=== PATIENT | female | born 2000 | race Caucasian/White ===

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

== ENCOUNTER 2018-11-08 18:04 | Emergency (ER) | payer MEDICAID ==
[2018-11-08 18:09] VITALS: BMI 21.2
[2018-11-08] MEDS ORDERED: ALDACTONE25 MG PO (18:11)
[2018-11-08] MEDS ORDERED: CEFUROXIME250 MG PO (18:12)
[2018-11-08 19:00] LABS: APPEARANCE CLEAR (CLEAR); BILIRUBIN NEGATIVE (NEGATIVE); COLOR YELLOW (YELLOW); GLUCOSE NEGATIVE (NEGATIVE); KETONE LARGE mg/dL (NEGATIVE); NITRITE NEGATIVE (NEGATIVE); PROTEIN NEGATIVE (NEGATIVE); SPECIFIC GRAVITY 1.015 (1.005-1.020); UROBILINOGEN NORMAL (NORMAL)
[2018-11-08 19:25] LABS: BASOPHILS 0.3 % (0-2); EOSINOPHILS 0.5 % (0-7); HEMATOCRIT 38.6 % (36.0-48.0); IMMATURE GRANULOCYTES 0.2 % (0-5); LYMPHOCYTES 22.7 % (15-50); MCH 29.5 pg (26.0-34.0); MCHC 33.7 g/dL (31.0-37.0); MCV 87.7 fL (80.0-100.0); MEAN PLATELET VOLUME 9.7 fL (7.4-10.4); MONOCYTES 7.2 % (2-11); NEUTROPHILS 69.1 % (40-80); PLATELET COUNT 353 10x3/uL (130-400); RDW 13.3 % (11.5-14.5); WBC 9.7 10x3/uL (4.8-10.8)
[2018-11-08 19:40] LABS: HCG SERUM NEGATIVE (NEGATIVE)
[2018-11-08 19:43] LABS: ALBUMIN 4.2 g/dL (3.4-5.0); ALKALINE PHOSPHATASE 57 U/L (46-116); ALT (SGPT) 12 U/L (10-68); AMYLASE - SERUM 55 U/L (25-115); BILIRUBIN - TOTAL 0.55 mg/dL (0.2-1.3); CALC OSMOLALITY 278 mosm/kg (275-300); CALCIUM 9.7 mg/dL (8.5-10.1); CARBON DIOXIDE 31.5 mmol/L (21.0-32.0); CHLORIDE - SERUM 102 mmol/L (98-107); GLUCOSE 93 mg/dL (74-106); LIPASE 135 U/L (73-393); PROTEIN - SERUM 7.6 g/dL (6.4-8.2); SODIUM 140 mmol/L (136-145); UREA NITROGEN 12 mg/dL (7-18); eGFR NON AFRICAN AMERICAN 75 mL/min (90-120)
[2018-11-08 19:44] LABS: C-REACTIVE PROTEIN < 0.2 mg/dL (0.0-0.9)
[2018-11-08 22:20] VITALS: BP 98/56
[2018-11-11 13:08] LABS: WNVS - IGG Negative (Negative); WNVS - IGM Negative (Negative)
[2018-11-11 14:07] LABS: EHRLICHIA CHAFF IGG Negative (Neg:<1:64); EHRLICHIA CHAFF IGM Negative (Neg:<1:20); HGE IGG TITER Negative (Neg:<1:64); HGE IGM TITER Negative (Neg:<1:20)
[2018-11-11 16:06] LABS: RMSF IGM 0.46 index (0.00-0.89)
[2018-11-16 08:13] LABS: F. TULARENSIS - IGG See below: (Negative); F. TULARENSIS - IGM Negative (Negative)
== END 2018-11-08 22:20 | disposition home or self-care (01) ==
LOC: D.ER 18:04
PROVIDERS: Family Medicine
DX: R50.9 Fever, unspecified (principal); K59.00 Constipation, unspecified

== ENCOUNTER 2019-09-11 23:22 | Emergency (ER) | payer OTHER ==
[~2019-09-11] VITALS: Ht 170.2 cm; Wt 60.0 kg
[~2019-09-11 23:22] MED LIST: ALDACTONE25 MG PO; CEFUROXIME250 MG PO
[2019-09-11 23:26] VITALS: Ht 170.2 cm; Wt 60.0 kg
[2019-09-12] LABS: BILIRUBIN NEGATIVE (NEGATIVE); GLUCOSE NEGATIVE (NEGATIVE); HCG URINE NEGATIVE (NEGATIVE); KETONE NEGATIVE (NEGATIVE); NITRITE NEGATIVE (NEGATIVE); UROBILINOGEN NORMAL (NORMAL)
[2019-09-12] MEDS ORDERED: ZOFRAN ODT4 MG/UDTAB PO (00:12)
[2019-09-12 00:25] VITALS: BP 112/72
== END 2019-09-12 00:25 | disposition home or self-care (01) ==
LOC: D.ER 23:22
PROVIDERS: Family Medicine
DX: R10.9 Unspecified abdominal pain (principal); R11.0 Nausea; J45.909 Unspecified asthma, uncomplicated